=== PATIENT | female | born 1990 | race Caucasian/White ===

== ENCOUNTER 2021-02-06 10:41 | Emergency (ER) | payer OTHER ==
[2021-02-06 10:51] VITALS: RESP 18; TEMP 98.7
[2021-02-06] MEDS ORDERED: ONDANSETRON 4 MG/2 ML VIAL IVP STA (11:27)
[2021-02-06] MEDS ORDERED: SODIUM CHLORIDE 0.9% 1,000 ML IV STA (11:27)
--- NOTE | 2021-02-06 11:34 | ED ---
Nausea/Vomiting/Diarrhea HPI - General Chief complaint: Nausea/Vomiting/Diarrhea Stated complaint: nausea, vomiting Time Seen by Provider: 02/06/21 11:20 Source: patient, RN notes reviewed Mode of arrival: ambulatory Limitations: no limitations - History of Present Illness Initial comments: Well-appearing white female, alert and oriented 4, presents to the emergency room with 2 weeks of nausea vomiting and diarrhea. She denies any fevers. She initially thought it was food poisoning but it continues. She states that sometimes when she smells food she gets nauseated. She did try to eat chicken yesterday and had diarrhea. She states that she has intermittent abdominal pain which is resolved after vomiting or having a bowel movement. She denies any hematochezia or hematemesis. She does not take any medications daily basis. She does smoke marijuana occasionally and a half a pack of cigarettes daily. MD complaint: nausea, vomiting, diarrhea -: week(s) (2) Description of Vomiting: food contents, watery Description of Diarrhea: other ([place]) Associated Abdominal Pain: Yes (Diffuse resolved after diarrhea or vomiting) Location: diffuse Radiation: none Severity scale (1-10): 2 Quality: cramping Consistency: intermittent, now resolved Improves with: bowel movement Worsens with: eating Associated Symptoms: loss of appetite, nausea/vomiting - Related Data Allergies Allergy/AdvReac Type Severity Reaction Status Date / Time No Known Allergies Allergy Verified 02/06/21 13:09 Review of Systems ROS Statement: Those systems with pertinent positive or pertinent negative responses have been documented in the HPI. ROS Other: All systems not noted in ROS Statement are negative. Past Medical History Past Medical History: No Reported History History of Any Multi-Drug Resistant Organisms: None Reported Additional Past Surgical History / Comment(s): laproscopic for scar tissue removal Past Psychological History: No Psychological Hx Reported Smoking Status: Current every day smoker Past Alcohol Use History: None Reported Past Drug Use History: Marijuana General Exam Limitations: no limitations General appearance: alert, in no apparent distress Head exam: Present: atraumatic, normocephalic, normal inspection Eye exam: Present: normal appearance, PERRL, EOMI. Absent: scleral icterus, co njunctival injection, periorbital swelling Pupils: Present: normal accommodation ENT exam: Present: normal exam, normal oropharynx, mucous membranes moist Neck exam: Present: normal inspection, full ROM. Absent: tenderness, meningismus, lymphadenopathy, thyromegaly Respiratory exam: Present: normal lung sounds bilaterally. Absent: respiratory distress, wheezes, rales, rhonchi, stridor, chest wall tenderness, accessory muscle use, decreased breath sounds, prolonged expiratory Cardiovascular Exam: Present: regular rate, normal rhythm, normal heart sounds. Absent: systolic murmur, diastolic murmur, rubs, gallop, clicks GI/Abdominal exam: Present: soft, normal bowel sounds. Absent: distended, tenderness, guarding, rebound, rigid, mass, hernia Extremities exam: Present: normal inspection, full ROM, normal capillary refill. Absent: tenderness, pedal edema, joint swelling, calf tenderness Back exam: Present: normal inspection, full ROM. Absent: CVA tenderness (R), CVA tenderness (L), muscle spasm, paraspinal tenderness, vertebral tenderness, rash noted Neurological exam: Present: alert, oriented X3, CN II-XII intact Psychiatric exam: Present: normal affect, normal mood Skin exam: Present: warm, dry, intact, normal color. Absent: rash, cyanosis, diaphoretic, petechiae, pallor Course Vital Signs 02/06/21 02/06/21 02/06/21 10:46 13:22 14:03 Temperature 98.7 F 98.7 F Pulse Rate 69 68 68 Respiratory 18 18 18 Rate Blood Pressure 112/76 104/63 104/63 O2 Sat by Pulse 98 98 98 Oximetry Medical Decision Making - Medical Decision Making Ultrasound of the abdomen shows gallbladder sludge and small stones without evidence of acute cholecystitis. Pancreas is within normal limits, liver is unremarkable. Her abdomen remained soft. She has no fever in the emergency room. Patient will be given referral to surgery. She was directed to stop eating spicy, greasy or fried foods until seen. Return to the emergency room with any worsening symptoms including fever or worsening pain. Case discussed with Dr. Davila - Lab Data Result diagrams: 02/06/21 11:41 02/06/21 11:41 Lab Results 02/06/21 02/06/21 02/06/21 Range/Units 11:41 11:41 11:41 WBC 9.9 (3.8-10.6) k/uL RBC 4.85 (3.80-5.40) m/uL Hgb 16.0 (11.4-16.0) gm/dL Hct 46.0 (34.0-46.0) % MCV 95.0 (80.0-100.0) fL MCH 33.0 (25.0-35.0) pg MCHC 34.7 (31.0-37.0) g/dL RDW 12.5 (11.5-15.5) % Plt Count 453 H (150-450) k/uL MPV 9.4 Neutrophils % (Manual) 62 % Band Neuts % (Manual) 1 % Lymphocytes % (Manual) 29 % Monocytes % (Manual) 7 % Eosinophils % (Manual) 1 % Neutrophils # (Manual) 6.20 (1.3-7.7) k/uL Lymphocytes # (Manual) 2.87 (1.0-4.8) k/uL Monocytes # (Manual) 0.69 (0-1.0) k/uL Eosinophils # (Manual) 0.10 (0-0.7) k/uL Nucleated RBCs 0 (0-0) /100 WBC Manual Slide Review Performed RBC Morphology Normal Sodium 138 (137-145) mmol/L Potassium 3.8 (3.5-5.1) mmol/L Chloride 103 (98-107) mmol/L Carbon Dioxide 25 (22-30) mmol/L Anion Gap 10 mmol/L BUN 4 L (7-17) mg/dL Creatinine 0.76 (0.52-1.04) mg/dL Est GFR (CKD-EPI)AfAm >90 (>60 ml/min/1.73 sqM) Est GFR (CKD-EPI)NonAf >90 (>60 ml/min/1.73 sqM) Glucose 111 H (74-99) mg/dL Calcium 9.6 (8.4-10.2) mg/dL Total Bilirubin 0.3 (0.2-1.3) mg/dL AST 68 H (14-36) U/L ALT 92 H (4-34) U/L Alkaline Phosphatase 40 (38-126) U/L Total Protein 6.6 (6.3-8.2) g/dL Albumin 4.1 (3.5-5.0) g/dL Amylase 59 (30-110) U/L Lipase 88 (23-300) U/L Urine Color Yellow Urine Appearance Cloudy H (Clear) Urine pH 6.0 (5.0-8.0) Ur Specific [place] 1.023 (1.001-1.035) Urine Protein 1+ H (Negative) Urine Glucose (UA) Negative (Negative) Urine Ketones 1+ H (Negative) Urine Blood Negative (Negative) Urine Nitrite Negative (Negative) Urine Bilirubin Negative (Negative) Urine Urobilinogen <2.0 (<2.0) mg/dL Ur Leukocyte Esterase Negative (Negative) Urine RBC 7 H (0-5) /hpf Urine WBC 18 H (0-5) /hpf Ur Squamous Epith Cells 31 H (0-4) /hpf Amorphous Sediment Occasional H (None) /hpf Urine Bacteria Moderate H (None) /hpf Urine Mucus Many H (None) /hpf Disposition Clinical Impression: Abdominal pain, Gallbladder sludge Clinical Impression: (Ruled Out): Urinary tract infection Disposition: HOME SELF-CARE Condition: Good Instructions (If sedation given, give patient instructions): Abdominal Pain (ED) Additional Instructions: Increase her fluid intake, follow up with the primary care doctor this week. Also follow-up with surgery as recommended. He a bland diet, nothing fried, greasy or spicy. Increase your fluid intake. Is patient prescribed a controlled substance at d/c from ED?: No Referrals: None,Stated [Primary Care Provider] - 1-2 days Ry Young MD [Medical Doctor] - 1-2 days Time of Disposition: 13:43
[2021-02-06 12:15] LABS: ALT 92 U/L (4-34); AST 68 U/L (14-36); African American GFR (CKD) >90 (>60 ml/min/1.73 sqM); Albumin 4.1 g/dL (3.5-5.0); Alkaline Phosphatase 40 U/L (38-126); Amylase 59 U/L (30-110); Anion Gap 10 mmol/L; Blood Urea Nitrogen 4 mg/dL (7-17); Calcium 9.6 mg/dL (8.4-10.2); Carbon Dioxide 25 mmol/L (22-30); Chloride 103 mmol/L (98-107); Glucose 111 mg/dL (74-99); Lipase 88 U/L (23-300); Non-African American GFR(CKD) >90 (>60 ml/min/1.73 sqM); Potassium 3.8 mmol/L (3.5-5.1); Sodium 138 mmol/L (137-145); Total Bilirubin 0.3 mg/dL (0.2-1.3); Total Protein 6.6 g/dL (6.3-8.2)
--- NOTE | 2021-02-06 12:36 | US ---
EXAMINATION TYPE: US abdomen limited DATE OF EXAM: 02/06/2021 COMPARISON: NONE CLINICAL HISTORY: n/v/d. N/V/D x couple months, patient not NPO EXAM MEASUREMENTS: Liver Length: 15.5 cm Gallbladder Wall: 0.1 cm CBD: 0.4 cm Right Kidney: 9.1 x 3.8 x 4.7 cm Pancreas: wnl Liver: wnl Gallbladder: sludge Evidence for sonographic Hernandez's sign: no CBD: wnl Right Kidney: wnl Visualized pancreas within normal limits. Visualized liver unremarkable. Gallbladder shows internal e choes consistent with small stones and/or sludge. No pericholecystic fluid or abnormal wall thickenin g. No right-sided hydronephrosis. IMPRESSION: Gallbladder sludge and/or small stones without secondary ultrasound evidence for acute ch olecystitis
[2021-02-06 12:40] LABS: Amorphous Sediment,Urine Occasional /hpf; Appearance,Urine Cloudy (Clear); Bacteria,Urine Moderate /hpf; Bilirubin,Urine Negative (Negative); Blood,Urine Negative (Negative); Color,Urine Yellow; Glucose,Urine (UA) Negative (Negative); Ketones,Urine 1+ (Negative); Leukocyte Esterase,Urine Negative (Negative); Mucus,Urine Many /hpf; Nitrite,Urine Negative (Negative); Protein,Urine 1+ (Negative); RBC,Urine 7 /hpf (0-5); Specific Gravity,Urine 1.023 (1.001-1.035); Squamous Epithelial Cell,Urine 31 /hpf (0-4); Urobilinogen,Urine <2.0 mg/dL (<2.0); WBC,Urine 18 /hpf (0-5)
[2021-02-06 12:52] LABS: MCHC 34.7 g/dL (31.0-37.0); Mean Platelet Volume 9.4; Platelet Count 453 k/uL (150-450); RBC 4.85 m/uL (3.80-5.40); RDW 12.5 % (11.5-15.5); WBC 9.9 k/uL (3.8-10.6)
[2021-02-06 13:18] LABS: Band Neutrophils % 1 %; Lymphocytes # (M) 2.87 k/uL (1.0-4.8); Monocytes # (M) 0.69 k/uL (0-1.0); Neutrophils % (M) 62 %; Nucleated Red Blood Cells 0 /100 WBC (0-0); Total Cells Counted 100
[2021-02-06 13:25] VITALS: BP 104/63; PULSE 68
== END 2021-02-06 14:04 | disposition home or self-care (01) ==
LOC: EC 10:41
DX: K82.8 Other specified diseases of gallbladder (principal); F17.210 Nicotine dependence, cigarettes, uncomplicated; F12.90 Cannabis use, unspecified, uncomplicated
CPT/HCPCS: 99284; 96374; 96361 ×2; 36415; 80053; 82150; 83690; 85025; 81001; 87086; 76705; J2405